=== PATIENT | female | born 1940 | race Two or more races ===

== ENCOUNTER 2024-04-30 13:38 | Inpatient (IN) | payer OTHER, MEDICAID ==
[~2024-04-30] VITALS: Ht 157.5 cm; Wt 107.5 kg
--- NOTE | 2024-04-30 14:08 | ED.PDOC ---
GI ASSESSMENT HPI Comments 83Y F with PMHx HTN, diverticulitis, , and hernia repair presents to ED for chief complaint LLQ abd pain x1day with diarrhea. Pt has chronic urinary incontinence. Pt denies constipation, nausea, vomiting, dysuria, urinary frequency, and urinary urgency. Pt states last diverticulitis episode was 2 years ago and she experienced similar symptoms. No other symptoms reported. Chief Complaint: Abdominal Pain Time Seen by MD: 13:55 Reviewed Notes: Nurses Notes, Medications, Allergies Allergies: Coded Allergies: Morphine (Verified Allergy, Unknown, 04/30/24) Information Source: Patient Mode of Arrival: Ambulatory Timing: Days Duration: Since onset Quality: Sharp Vomitus: None Stool: Watery Severity: Mild Recent: None Recent Hx of: None Pain Location: LLQ Modifying Factors: Nothing Associated sign and symptoms: Diarrhea, Abdominal Pain Past Medical History PAST MEDICAL HISTORY: HTN Surgical History: , Hernia Repair [employer] History: No Pertinent [employer] History Family History Family History: Unknown Social History Smoker: Non-Smoker Alcohol: Denies ETOH Use Drugs: Denies Drug Use Lives In: Home Constitutional: denies: chills, diaphoresis, fatigue, fever, malaise, sweats, weakness, others EENTM: denies: blurred vision, double vision, ear bleeding, ear discharge, ear drainage, ear pain, ear ringing, eye pain, eye redness, hearing loss, mouth pain, mouth swelling, nasal discharge, nose bleeding, nose congestion, nose pain, photophobia, tearing, throat pain, throat swelling, voice changes, others Respiratory: denies: cough, hemoptysis, orthopnea, SOB at rest, shortness of breath, SOB with excertion, stridor, wheezing, others Cardiovascular: denies: chest pain, dizzy spells, diaphoresis, Dyspnea on exertion, edema, irregular heart beat, left arm pain, lightheadedness, palpitations, PND, syncope, others Gastrointestinal: reports: abdominal pain, diarrhea; denies: abdomen distended, blood streaked bowels, constipated, dysphagia, difficulty swallowing, hematemesis, melena, nausea, poor appetite, poor fluid intake, rectal bleeding, rectal pain, vomiting, others Genitourinary: reports: incontinence; denies: abnormal vagina bleeding, burning, dyspareunia, dysuria, flank pain, frequency, hematuria, pain, , vagina discharge, urgency, others Neurological: denies: dizziness, fainting, headache, left sided numbness, left sided weakness, numbness, paresthesia, pre-existing deficit, right sided numbness, right sided weakness, seizure, speech problems, tingling, tremors, weakness, others Musculoskeletal: denies: back pain, gout, joint pain, joint swelling, muscle pain, muscle stiffness, neck pain, others Integumetry: denies: bruises, change in color, change in hair/nails, dryness, laceration, lesions, lumps, rash, wounds, others Allergic/Immunocompromised: denies: Difficulty Healing, Frequent Infections, Hives, Itching, others Hematologic/Lymphatic: denies: anemia, blood clots, easy bleeding, easy bruising, swollen glands, others Endocrine: denies: excessive hunger, excessive sweating, excessive thirst, excessive urination, flushing, intolerance to cold, intolerance to heat, unexplained weight gain, unexplained weight loss, others Psychiatric: denies: anxiety, bipolar disorder, depression, hopeless, panic disorder, schizophrenia, sleepless, suicidal, others All Other Systems: Reviewed and Negative Physical Exam General Appearance: No Apparent Distress, Normal HEENT: Normal ENT Inspection, Pharynx Normal, TMs Normal Neck: Full Range of Motion, Non-Tender, Normal, Normal Inspection Respiratory: Chest Non-Tender, Lungs Clear, No Accessory Muscle Use, No Respiratory Distress, Normal Breath Sounds Cardiovascular: No Edema, No JVD, No Murmur, No Gallop, Normal Peripheral Pulses, Regular Rate/Rhythm Breast Exam: Deferred Gastrointestinal: Diffuse, No Organomegaly, No Pulsatile Mass, Normal Bowel Sounds, Tenderness (mild) Genitalia: Deferred Pelvic: Deferred Rectal: Deferred Extremities: No calf tenderness, Normal capillary refill, Normal inspection, Normal range of motion, Non-tender, No pedal edema Musculoskeletal : Apperance: Normal Neurologic: Alert, rack loader II-XII nml as Tested, No Motor Deficits, Normal Affect, Normal Mood, No Sensory Deficits Cerebellar Function: Normal Reflexes: Normal Skin: Dry, Normal Color, Warm Lymphatic: No Adenopathy Was a procedure done? Was a procedure done?: No GI differential Dx Differential Diagnosis: Appendicitis, Aortic dissection, Bowel Obstruction, Cholangitis, Cholecystitis, Constipation, Diverticular disease, Gastritis/PUD, Gastroenteritis, GI hemorrhage, Hernia, Hepatitis, Inflammatory BD, Ischemic Bowel, Ovarian cyst/torsion, Pancreatitis, PID, Urinary Obstruction, UTI, Urolithiasis, Diabetes/ DKA, Electrolyte Imbalance, Food Poisoning, Bacterial, Parasitic, Viral, Hypovolemia, Impaction, Malnutrition, Ischemic Bowel, Mass, Kidney Stone X-Ray, Labs, Meds, VS Vital Signs Date Time Temp Pulse Resp B/P (MAP) Pulse Ox O2 Delivery O2 Flow Rate FiO2 04/30/24 15:44 69 19 152/80 (104) 95 04/30/24 15:43 69 19 152/80 04/30/24 15:02 65 20 97 Room Air* 0 21 04/30/24 14:52 65 18 157/62 04/30/24 14:48 98.2 65 18 157/62 (93) 92 98.2 04/30/24 13:48 99.9 72 18 182/71 (108) 94 Lab Test 04/30/24 14:43 04/30/24 13:52 Range/Units White Blood Count 11.0 H 4.4-10.8 10^3/uL Red Blood Count 5.30 H 4.0-5.20 10^6/uL Hemoglobin 15.0 12.2-16.2 g/dL Hematocrit 45.2 36.0-46.0 % Mean Corpuscular Volume 85.2 80.0-100.0 fL Mean Corpuscular Hemoglobin 28.2 28.0-32.0 pg Mean Corpuscular Hemoglobin Concent 33.1 32.0-36.0 g/dL Red Cell Distribution Width 14.7 H 11.8-14.3 % Platelet Count 174 140-450 10^3/uL Mean Platelet Volume 8.1 6.9-10.8 fL Neutrophils (%) (Auto) 58.8 37.0-80.0 % Lymphocytes (%) (Auto) 20.1 10.0-50.0 % Monocytes (%) (Auto) 12.0 0.0-12.0 % Eosinophils (%) (Auto) 8.5 H 0.0-7.0 % Basophils (%) (Auto) 0.6 0.0-2.0 % Neutrophils # (Auto) 6.4 1.6-8.6 10 ^3/uL Lymphocytes # (Auto) 2.2 0.4-5.4 10 ^3/uL Monocytes # (Auto) 1.3 0-1.3 10 ^3/uL Eosinophils # (Auto) 0.9 H 0-0.8 10 ^3/uL Basophils # (Auto) 0.1 0-0.2 10 ^3/uL Nucleated Red Blood Cells 0.0 % Sodium Level 138 136-145 mmol/L Potassium Level 4.0 3.5-5.1 mmol/L Chloride Level 107 98-107 mmol/L Carbon Dioxide Level 26 20-31 mmol/L Anion Gap 5 5-15 Blood Urea Nitrogen 10 9-23 mg/dL Creatinine 0.73 0.550-1.02 mg/dL Glomerular Filtration Rate Calc 81 >90 mL/min BUN/Creatinine Ratio Pending Serum Glucose 85 74-106 mg/dL Calcium Level 9.5 8.7-10.4 mg/dL Urine Color Light-yellow Yellow Urine Clarity Clear Clear Urine pH 7.0 5.0-9.0 Urine Specific [place] 1.009 1.001-1.035 Urine Protein Negative Negative Urine Ketones Negative Negative Urine Blood Negative Negative /uL Urine Nitrite Negative Negative Urine Bilirubin Negative Negative Urine Urobilinogen Normal Negative mg/dL Urine Leukocyte Esterase Negative Negative /uL Urine RBC 1 0 - 4 /hpf Urine WBC None seen 0 - 5 /hpf Urine Squamous Epithelial Cells Few <5 /hpf Urine Bacteria None seen None Seen /hpf Urine Glucose Normal Normal mg/dL Current Medications Medications (Trade) Dose Ordered Sig/Stacey Route Start Time Stop Time Status Last Admin Morphine Sulfate 2 mg ONCE ONCE IV 04/30/24 14:00 04/30/24 14:01 DC 04/30/24 14:52 Ondansetron HCl (Zofran) 4 mg ONCE ONCE IV 04/30/24 14:00 04/30/24 14:01 DC 04/30/24 14:50 Sodium Chloride 1,000 ml @ 100 mls/hr Q10H ONCE IV 04/30/24 14:00 04/30/24 23:59 04/30/24 14:[address] [address] Ph: [phone] DIAGNOSTIC IMAGING Diagnostic Imaging Report : [id number] Signed PATIENT: RUEL ROCHA ACCT: [id number] UNIT: [id number] : 1940 LOC: ER ROOM / BED: / AGE / SEX: 83 / F ADM STATUS: REG ER SERVICE 1354 ORDERING PHYSICIAN: BIANCA PLUMMER MD PROCEDURE(s): ABPL - CT AB PEL WO CON-NO ORAL OR IV REASON: llq pain, history of diverticulitis ORDER NUMBER(s): [id number], ACCESSION NUMBER(s): [id number] CT ABDOMEN AND PELVIS WITHOUT CONTRAST CLINICAL HISTORY: llq pain, history of diverticulitis TECHNIQUE: Multiple contiguous axial images of the abdomen and pelvis without intravenous contrast. The images were reformatted degenerate coronal and sagittal reconstructions. All CT scans at this medical facility are performed using dose modulation techniques as appropriate to a performed exam including the following:Automated exposure control was utilized; adjustment of the MA and/or KV according to patient size; and use of iterative reconstruction technique. Radiation Dose Information: CT Dose: CTDI volume is 25 mGy. Dose-length product is 1351 mGy*cm Comparison: None FINDINGS: Evaluation of the abdomen and pelvis is limited without intravenous contrast. The liver, gallbladder, pancreas, kidneys, adrenal glands, and spleen appear within normal limits. There is no gross evidence of abdominal lymphadenopathy. There is no free fluid or free air. There is a small hiatal hernia. The small and large bowel loops demonstrate normal caliber. There are multiple diverticula in the distal colon. There is irregular wall thickening with surrounding fat stranding in the sigmoid colon compatible with acute diverticulitis. There is no pericolonic fluid collection or free air. The abdominal aorta and IVC appear within normal limits. The bladder appears unremarkable for the degree of distention. Uterus grossly appears within normal limits.. There is no gross evidence of a pelvic mass. There is no free fluid collection. Lung bases are clear. There is no acute osseous abnormality. Levoconvex curvature of the lumbar spine with multilevel degenerative changes. IMPRESSION: 1. Acute sigmoid diverticulitis. There is no evidence pericolonic fluid collection or free air. 2. Small hiatal hernia. HS:Y ATED BY: DEWEY LANDIN MD DICTATED DATE/TIME: 04/30/24 1423 SIGNED BY: DEWEY LANDIN MD SIGNED DATE/TIME: 04/30/24 1423 CC: Time of 1ST Reevaluation: 14:25 Reevaluation 1ST: Unchanged Time of 2ND Reevaluation: 15:47 Reevaluation 2ND: Improved Patient Education/Counseling: Diagnosis, Treatment, Prognosis, Need For Follow Up Family Education/Counseling: No Family Present Additional Information I reviewed the following notes from patient's past medical encounters: None The following tests were ordered, and results were reviewed by me: CBC, BMP, UA, CT abd/pelvis WO contrast Additional Information was gathered from interviewing the following independent historians: None I reviewed and agreed with the following test results read by other providers: CT abd/pelvis WO contrast I discussed treatment and results with medical personnel. this is an elderly frail patient with a history of diverticulitis. she has recurrent divert iculitis. although there are no abscesses or perforations, she is a frail elderly bhutanese speaking only, without family here. compliance is a concern. she will be admitted for treatment Departure 1 Departure Time of Disposition: 15:49 Impression: Primary Impression: Diverticulitis of intestine Qualified Codes: K57.32 - Diverticulitis of large intestine without perforation or abscess without bleeding Disposition: ADMITTED INPATIENT Admit to: Med Surg Condition: Stable Discharged With: Self Critical Care Note Critical Care Time?: Yes (55 min-critical care time only) Critical care comment: Due to concerns for patients condition deteriorating, the care required my highest level of attention and readiness to intervene. I assessed the patient, reviewed the medical records, ordered the appropriate tests and treatments, then reassessed for results and responsiveness. I communicated with medical personnel and consultants and formulated a plan of care. Total critical care time excludes any procedures Stability Stability form required: No Heart Score Heart Score: Heart Score Response (Comments) Value History N/A 0 EKG N/A 0 Age N/A 0 Risk Factors N/A 0 Troponin N/A 0 Total 0 I personally scribed for BIANCA PLUMMER MD ([facility]) on 04/30/24 at 14:08. Electronically submitted by Latisha Keating ([facility]). I personally scribed for BIACNA PLUMMER MD ([facility]) on 04/30/24 at 15:13. Electronically submitted by Latisha Keating ([facility]). BIANCA PLUMMER MD Apr 30, 2024 14:08
[2024-04-30 14:22] LABS: Urine Bacteria None Seen /hpf (None Seen); Urine WBC None Seen /hpf (0 - 5)
--- NOTE | 2024-04-30 14:26 | DVH ---
CT ABDOMEN AND PELVIS WITHOUT CONTRAST CLINICAL HISTORY: llq pain, history of diverticulitis TECHNIQUE: Multiple contiguous axial images of the abdomen and pelvis without intravenous contrast. The images were reformatted degenerate coronal and sagittal reconstructions. All CT scans at this medical facility are performed using dose modulation techniques as appropriate t o a performed exam including the following:Automated exposure control was utilized; adjustment of the MA and/or KV according to patient size; and use of iterative reconstruction technique. Radiation Dose Information: CT Dose: CTDI volume is 25 mGy. Dose-length product is 1351 mGy*cm Comparison: None FINDINGS: Evaluation of the abdomen and pelvis is limited without intravenous contrast. The liver, gallbladder, pancreas, kidneys, adrenal glands, and spleen appear within normal limits. There is no gross evidence of abdominal lymphadenopathy. There is no free fluid or free air. There is a small hiatal hernia. The small and large bowel loops demonstrate normal caliber. There a re multiple diverticula in the distal colon. There is irregular wall thickening with surrounding fat stranding in the sigmoid colon compatible with acute diverticulitis. There is no pericolonic fluid co llection or free air. The abdominal aorta and IVC appear within normal limits. The bladder appears unremarkable for the degree of distention. Uterus grossly appears within normal l imits.. There is no gross evidence of a pelvic mass. There is no free fluid collection. Lung bases are clear. There is no acute osseous abnormality. Levoconvex curvature of the lumbar spine with multilevel degen erative changes. IMPRESSION: 1. Acute sigmoid diverticulitis. There is no evidence pericolonic fluid collection or free air. 2. Small hiatal hernia. HS:Y
[2024-04-30 14:45] LABS: Urine Blood Negative /uL (Negative); Urine Clarity Clear (Clear); Urine Protein, UAD Negative (Negative); Urine Specific Gravity 1.009 (1.001-1.035); Urine Squamous Epithelial Cell FEW /hpf (<5); Urine Urobilinogen Normal (Negative)
[2024-04-30 14:47] LABS: Urine Color Light-Yellow (Yellow)
[2024-04-30] MEDS: ONDANSETRON HCL 4 MG/2 ML VIAL IV ONE (14:50)
[2024-04-30] MEDS: SODIUM CHLORIDE 0.9% 1,000 ML IV ONE (14:52)
[2024-04-30] MEDS: MORPHINE SULFATE INJ 2 MG/ml SYRG IV ONE (14:52)
[2024-04-30 15:02] VITALS: PULSE 65; RESP 20; O2SAT 97
[2024-04-30 15:07] LABS: Basophils # (auto) 0.1 10 ^3/uL (0-0.2); Basophils % (auto) 0.6 % (0.0-2.0); Eosinophils # (auto) 0.9 10 ^3/uL (0-0.8); Eosinophils % (auto) 8.5 % (0.0-7.0); Hematocrit 45.2 % (36.0-46.0); Lymphocytes # (auto) 2.2 10 ^3/uL (0.4-5.4); Lymphocytes % (auto) 20.1 % (10.0-50.0); Mean Corpuscular Hemoglobin 28.2 pg (28.0-32.0); Mean Corpuscular Hgb Conc. 33.1 g/dL (32.0-36.0); Mean Corpuscular Volume 85.2 fL (80.0-100.0); Monocytes # (auto) 1.3 10 ^3/uL (0-1.3); Neutrophils # (auto) 6.4 10 ^3/uL (1.6-8.6); Neutrophils % (auto) 58.8 % (37.0-80.0); Platelet Count (auto) 174 10^3/uL (140-450); Red Cell Distribution Width 14.7 % (11.8-14.3)
[2024-04-30 15:13] LABS: Chloride 107 mmol/L (98-107); Sodium 138 mmol/L (136-145)
[2024-04-30 15:14] LABS: Anion Gap 5 (5-15); Carbon Dioxide 26 mmol/L (20-31)
[2024-04-30 15:15] LABS: Calcium 9.5 mg/dL (8.7-10.4)
[2024-04-30 15:20] LABS: Glucose 85 mg/dL (74-106)
[2024-04-30 15:52] LABS: BUN/Creatinine Ratio 13.7 (10.0-20.0); Blood Urea Nitrogen 10 mg/dL (9-23)
[2024-04-30] MEDS: cefTRIAXone 1GM/50ML D5W 50 ML IV ONE (16:29)
[2024-04-30] MEDS: metroNIDAZOLE 500MG/100ML 100 ML IV ONE (16:30)
--- NOTE | 2024-04-30 21:23 | DVHHPRES ---
History of Present Illness Resident Creating Document: POOJA VELASQUEZ RESIDENT History of Present Illness This is a 83-year-old female with past medical history of hypertension, diverticulitis presented to the ED with a chief complaint of left lower abdominal pain and few episodes of loose stool for 1 day prior to this admissio n. The patient states that abdominal pain started yesterday , which is constant, colicky in nature, 9/10 radiate to the lower abdomen without any aggravating or relieving factors and associated with few episodes of loose stool. The patient also complains of urgency and frequency and intermittent abdominal pain for last 1 year. The patient mentions last flare-up of diverticulitis was 2 years ago and that time she was admitted in the hospital and took IV antibiotics. She denies fever, chills, chest pain, shortness of breath, dizziness, diaphoresis, nausea, vomiting, dysuria, hematuria, hematochezia, sick contact. Past Medical History HTN, Diverticulitis Past Surgical History C- section, hernia repair Past Social History Lives alone and has a caregiver Nonsmoker,nonalcoholic and never tried any drugs Review of Systems Constitutional: No: Fever, Chills, Sweats, Weakness, Malaise, Other Eyes: No: Pain, Vision change, Conjunctivae inflammation, Eyelid inflammation, Other, Redness ENT: No: Ear pain, Ear discharge, Nose pain, Nose discharge, Nose congestion, Mouth pain, Mouth swelling, Throat pain, Throat swelling, Other Respiratory: No: Cough, Dry, Shortness of breath, SOB with excertion, Wheezing, Hemoptysis, Pleuritic Pain, Sputum, Wheezing, Other Cardiovascular: No: Chest Pain, Palpitations, Orthopnea, Paroxysmal Noc. Dyspnea, Edema, Lt Headedness, Other Gastrointestinal: Abdominal Pain, Diarrhea; No: Nausea, Vomiting, Constipation, Melena, Hematochezia, Other Genitourinary: No Dysuria; Frequency, Incontinence; No Hematuria, No Retention, No Other Musculoskeletal: No: other, neck pain, shoulder pain, arm pain, back pain, hand pain, leg pain, foot pain Skin: No: Rash, Lesions, Jaundice, Bruising, Other Neurological: No: Weakness, Numbness, Incoordination, Change in speech, Confusion, Seizures, Other Allergies: Coded Allergies: Morphine (Verified Allergy, Unknown, 04/30/24) Exam Vital Signs Vital Signs Date Time Temp Pulse Resp B/P (MAP) Pulse Ox O2 Delivery O2 Flow Rate FiO2 04/30/24 19:35 98.4 74 144/65 (91) 93 98.4 04/30/24 15:44 19 04/30/24 15:02 Room Air* 0 21 Exam Physical examination: General Appearance: Alert, Oriented X3, Cooperative, mild distress HEENT: Atraumatic, PERRLA, EOMI, Mucous membrane moist/pink Respiratory: Clear to auscultation, Normal air movement Cardiovascular: Regular rate, Normal S1, Normal S2, No murmurs, no chest wall tenderness Abdominal: Normal bowel sounds, Soft, mild tenderness in the lt lower abdomen, No hepatospenomegaly, No masses Extremities: No clubbing, No cyanosis, No edema, Normal pulses, No tenderness/swelling Skin: No rashes, No breakdown, No significant lesion Neuro: Use walker, Normal speech, Strength at 5/5 X4 ext, Normal tone, Sensation intact, grossly intact cranial nerves. Psych/Mental Status: Mental status NL, Mood NL Labs/Xrays Labs Test 04/30/24 14:43 04/30/24 13:52 Range/Units White Blood Count 11.0 H 4.4-10.8 10^3/uL Red Blood Count 5.30 H 4.0-5.20 10^6/uL Hemoglobin 15.0 12.2-16.2 g/dL Hematocrit 45.2 36.0-46.0 % Mean Corpuscular Volume 85.2 80.0-100.0 fL Mean Corpuscular Hemoglobin 28.2 28.0-32.0 pg Mean Corpuscular Hemoglobin Concent 33.1 32.0-36.0 g/dL Red Cell Distribution Width 14.7 H 11.8-14.3 % Platelet Count 174 140-450 10^3/uL Mean Platelet Volume 8.1 6.9-10.8 fL Neutrophils (%) (Auto) 58.8 37.0-80.0 % Lymphocytes (%) (Auto) 20.1 10.0-50.0 % Monocytes (%) (Auto) 12.0 0.0-12.0 % Eosinophils (%) (Auto) 8.5 H 0.0-7.0 % Basophils (%) (Auto) 0.6 0.0-2.0 % Neutrophils # (Auto) 6.4 1.6-8.6 10 ^3/uL Lymphocytes # (Auto) 2.2 0.4-5.4 10 ^3/uL Monocytes # (Auto) 1.3 0-1.3 10 ^3/uL Eosinophils # (Auto) 0.9 H 0-0.8 10 ^3/uL Basophils # (Auto) 0.1 0-0.2 10 ^3/uL Nucleated Red Blood Cells 0.0 % Sodium Level 138 136-145 mmol/L Potassium Level 4.0 3.5-5.1 mmol/L Chloride Level 107 98-107 mmol/L Carbon Dioxide Level 26 20-31 mmol/L Anion Gap 5 5-15 Blood Urea Nitrogen 10 9-23 mg/dL Creatinine 0.73 0.550-1.02 mg/dL Glomerular Filtration Rate Calc 81 >90 mL/min BUN/Creatinine Ratio 13.7 10.0-20.0 Serum Glucose 85 74-106 mg/dL Calcium Level 9.5 8.7-10.4 mg/dL Urine Color Light-yellow Yellow Urine Clarity Clear Clear Urine pH 7.0 5.0-9.0 Urine Specific [place] 1.009 1.001-1.035 Urine Protein Negative Negative Urine Ketones Negative Negative Urine Blood Negative Negative /uL Urine Nitrite Negative Negative Urine Bilirubin Negative Negative Urine Urobilinogen Normal Negative mg/dL Urine Leukocyte Esterase Negative Negative /uL Urine RBC 1 0 - 4 /hpf Urine WBC None seen 0 - 5 /hpf Urine Squamous Epithelial Cells Few <5 /hpf Urine Bacteria None seen None Seen /hpf Urine Glucose Normal Normal mg/dL Assessment/Plan Assessment/Plan Assessment and plan: # Intractable abdominal pain likely secondary to acute sigmoid diverticulitis - CT abdomen pelvis revealed acute sigmoid diverticulitis and there is no evidence pericolonic fluid collection or free air. - Clear liquid diet - IV normal saline at 100ml/hr - IV morphine 2mg Q6 p.r.n. - IV ondansetron 4 mg Q 8 p.r.n. - IV ceftriaxone 2 g daily and IV metronidazole 500 mg t.i.d. # Prediabetes, hemoglobin A1c 6 % # Morbid obesity ( BMI 41.3 kg/m2) - Counseled patient regarding low carb diet, lifestyle modification and physical exercise # Hypertensive heart disease - Lisinopril 20 mg p.o. daily and amlodipine 5 mg daily # PUD prophylaxis - Pepcid 20 mg p.o. daily # DVT prophylaxis - Lovenox 40 mg sc daily Goal of care discussed with the patient for more than 17 minutes full code Plan discussed with Dr. Murillo Plan discussed with: Patient, Other My Orders Orders - POOJA VELASQUEZ Procedure Category Date Status Time Admit ADMIT 04/30/24 Transmitted 21:21 Date of Service: Apr 30, 2024 Billing Provider: VICKIE MURILLO MD Common Visit Codes: 35252-HVVMGRT INP/OBS CARE (HIGH) Secondary Visit Codes: [id number] CARE PLAN 30 MINUTES POOJA VELASQUEZ Apr 30, 2024 21:23 VICKIE MURILLO MD May 01, 2024 20:51
[2024-04-30] MEDS ORDERED: ONDANSETRON HCL 4 MG/2 ML VIAL IV PRN (21:45)
[2024-04-30] MEDS ORDERED: MORPHINE SULFATE INJ 2 MG/ml SYRG IV PRN (21:45)
[2024-04-30] MEDS: SODIUM CHLORIDE 0.9% 1,000 ML IV SCH (21:45)
[2024-04-30 22:22] LABS: INR 1.04 (0.9-1.15); Partial Thromboplastin Time 28.5 SEC (24.5-34.5)
[2024-04-30] MEDS: metroNIDAZOLE 500MG/100ML 100 ML IV SCH (22:27)
[2024-04-30 23:18] VITALS: BP 149/64; PULSE 70; RESP 19; TEMP 97.7; O2SAT 93
[2024-04-30 23:30] VITALS: BP 149/64; PULSE 70; RESP 19; TEMP 97.7; O2SAT 93
[2024-05-01] VITALS (8 sets, daily range): BP systolic 128–155; BP diastolic 53–85; PULSE 59–65; RESP 15–19; TEMP 97.5–98; O2SAT 17–96
--- NOTE | 2024-05-01 06:03 | DVH ---
CHEST RADIOGRAPH Indication: Chest pain Technique: Single frontal view of the chest was obtained Comparison: None FINDINGS: Lines and Tubes: None Lungs: No focal consolidation. Pleura: No effusion. No pneumothorax. Cardiomediastinal contours: Cardiomegaly. Bones: No acute osseous abnormality. IMPRESSION: 1. Cardiomegaly. 2. No focal airspace disease.
[2024-05-01 09:31] LABS: Amphetamine Screen, Urine Neg (NEGATIVE); Barbiturate Scree,Urine Neg (NEGATIVE); Benzodiazephine Screen, Urine Neg (NEGATIVE); Cocaine Screen, Urine Neg (NEGATIVE); Opiate Scree,Urine Neg (NEGATIVE); Phencyclidine Screen, Urine Neg (NEGATIVE)
[2024-05-01 09:32] LABS: Cannabinoid Screen, Urine Neg (NEGATIVE)
[2024-05-01] MEDS ORDERED: amLODIPine BESYLATE 5 MG TAB PO SCH (10:00)
[2024-05-01] MEDS: amLODIPine BESYLATE 5 MG TAB PO SCH (10:00)
[2024-05-01] MEDS: LISINOPRIL 20 MG TAB PO SCH (10:09)
[2024-05-01] MEDS: FAMOTIDINE 20 MG TAB PO SCH (10:10)
[2024-05-01] MEDS: ENOXAPARIN SOD 40 MG/0.4 ML SYRINGE SC SCH (10:11)
[2024-05-01 10:36] LABS: Basophils # (auto) 0 10 ^3/uL (0-0.2); Basophils % (auto) 0.5 % (0.0-2.0); Eosinophils # (auto) 0.7 10 ^3/uL (0-0.8); Eosinophils % (auto) 9.6 % (0.0-7.0); Hematocrit 41.7 % (36.0-46.0); Hemoglobin 13.8 g/dL (12.2-16.2); Lymphocytes # (auto) 1.5 10 ^3/uL (0.4-5.4); Lymphocytes % (auto) 20.5 % (10.0-50.0); Mean Corpuscular Hemoglobin 28.1 pg (28.0-32.0); Mean Corpuscular Hgb Conc. 33.1 g/dL (32.0-36.0); Mean Corpuscular Volume 84.8 fL (80.0-100.0); Monocytes # (auto) 0.8 10 ^3/uL (0-1.3); Neutrophils # (auto) 4.5 10 ^3/uL (1.6-8.6); Neutrophils % (auto) 59.4 % (37.0-80.0); Platelet Count (auto) 159 10^3/uL (140-450); Red Blood Cells 4.92 10^6/uL (4.0-5.20); Red Cell Distribution Width 14.8 % (11.8-14.3); White Blood Cell 7.5 10^3/uL (4.4-10.8)
--- NOTE | 2024-05-01 13:18 | DVHPN2 ---
Reviewed: Care Plan, H&P, Labs, Medications, Previous Orders, Radiology Changes from previous H/P or p: No Changes Eyes: No Pain, No Vision change, No Conjunctivae inflammation, No Eyelid inflammation, No Other, No Redness ENT: No Ear pain, No Ear discharge, No Nose pain, No Nose discharge, No Nose congestion, No Mouth pain, No Mouth swelling, No Throat pain, No Throat swelling, No Other Cardiovascular: No Chest Pain, No Palpitations, No Orthopnea, No Paroxysmal Noc. Dyspnea, No Edema, No Lt Headedness, No Other Respiratory: No Cough, No Dry, No Shortness of breath, No SOB with excertion, No Wheezing, No Hemoptysis, No Pleuritic Pain, No Sputum, No Other Gastrointestinal: No Nausea, No Vomiting; Abdominal Pain, Diarrhea; No Constipation, No Melena, No Hematochezia, No Other Genitourinary: No Dysuria; Frequency, Incontinence; No Hematuria, No Retention, No Other Musculoskeletal: No other, No neck pain, No shoulder pain, No arm pain, No back pain, No hand pain, No leg pain, No foot pain Skin: No Rash, No Lesions, No Jaundice, No Bruising, No Other Objective Vitals Vital Signs Date Time Temp Pulse Resp B/P (MAP) Pulse Ox O2 Delivery O2 Flow Rate FiO2 05/01/24 13:00 98.0 59 17 134/66 (88) 17 98.0 04/30/24 23:18 Room Air* 0 21 Intake/Output Intake and Output 05/01/24 07:00 Intake Total 250 ml Balance 250 ml Intake IV Total 250 ml # Voids 2 Medications Current Medications Medications Dose Ordered Sig/Stacey Route Start Time Stop Time Status Last Admin Dose Admin Sodium Chloride 1,000 ml @ 75 mls/hr [id number] IV 04/30/24 21:45 04/30/24 21:45 75 MLS/HR Ceftriaxone Sodium/Dextrose 50 ml @ 50 mls/hr Q24H IV 05/01/24 21:00 Metronidazole 100 ml @ 100 mls/hr TID IV 04/30/24 22:00 05/01/24 05:14 100 MLS/HR Ondansetron HCl 4 mg Q8HPRN PRN IV 04/30/24 21:45 Morphine Sulfate 2 mg Q6HPRN PRN IV 04/30/24 21:45 Lisinopril 20 mg DAILY PO 05/01/24 10:00 05/01/24 10:09 20 MG Famotidine 20 mg DAILY PO 05/01/24 10:00 05/01/24 10:10 20 MG Enoxaparin Sodium 40 mg DAILY SC 05/01/24 10:00 05/01/24 10:11 40 MG Amlodipine Besylate 10 mg DAILY PO 05/01/24 08:45 05/01/24 10:10 10 MG Laboratory Results Laboratory Tests 04/30/24 14:43 05/01/24 09:15 Chemistry Test 04/30/24 14:43 Calcium Level 9.5 mg/dL (8.7-10.4) Coagulation Test 04/30/24 21:50 Prothrombin Time 11.0 sec (9.3-11.8) Prothrombin Time INR 1.04 (0.9-1.15) Activated Partial Thromboplast Time 28.5 SEC (24.5-34.5) Cardiac Markers Test 04/30/24 21:50 B-Type Natriuretic Peptide 135.68 pg/mL (0-100) HgA1c, TSH Test 04/30/24 21:50 Hemoglobin A1c 6.0 % A1C (<5.7) H Thyroid Stimulating Hormone (TSH) 1.06 uIU/mL (0.55-4.78) Urinalysis Test 04/30/24 13:52 Urine Color Light-yellow (Yellow) Urine Clarity Clear (Clear) Urine pH 7.0 (5.0-9.0) Urine Specific [place] 1.009 (1.001-1.035) Urine Protein Negative (Negative) Urine Ketones Negative (Negative) Urine Blood Negative /uL (Negative) Urine Nitrite Negative (Negative) Urine Bilirubin Negative (Negative) Urine Urobilinogen Normal mg/dL (Negative) Urine Leukocyte Esterase Negative /uL (Negative) Urine RBC 1 /hpf (0 - 4) Urine WBC None seen /hpf (0 - 5) Urine Squamous Epithelial Cells Few /hpf (<5) Urine Bacteria None seen /hpf (None Seen) Urine Glucose Normal mg/dL (Normal) Labs and/or images reviewed: Labs reviewed by me, Image(s) reviewed by me Assessment/Plan Assessment/Plan Sepsis secondary to acute diverticulitis: Blood cultures Acute diverticulitis: Rocephin Flagyl History of recurrent diverticulitis Uncontrolled hypertension Acute dehydration: IV fluids Time spent 55 minutes Patient is full code Advanced care planning time 20 minutes Plan discussed with: Patient Date of Service: May 01, 2024 Billing Provider: JESSE GUPTA MD Common Visit Codes: [id number] INP/OBS CARE(HIGH) Secondary Visit Codes: [id number] CARE PLAN 30 MINUTES JESSE GUPTA MD May 01, 2024 13:18
[2024-05-01] MEDS: cefTRIAXone 2GM/50ML D5W 50 ML IV SCH (20:16)
--- NOTE | 2024-05-01 21:38 | DVHSR ---
APPROVED REPORT EXAM: Two-dimensional and M-mode echocardiogram with Doppler and color Doppler. Blood Pressure: 145/53 mmHg INDICATION cardiac delination RISK FACTORS Height: 62, Weight: 226 DIMENSIONS LVDd (3.8-5.7cm)LA (2D)4.9 (1.9-4.0cm)Aortic Root (2.0-3.7cm) EF (%) 65.0 (55-70%)Rt. Atrium4.4 (1.9-4.0cm)Asc. Aorta cm Mitral Valve MitralMitral Stenosis E wave0.89m/sMV Mean GR.mmHg A wave1.04m/sMV Peak GR.122mmHg E/A ratio0.92D MVAcm2 DECEL [id number] 1/2 Timems Aortic Valve Aortic ValveAortic Stenosis V10.99m/Damon Mean GR.8mmHg V22.07m/Damon Peak GR.18mmHg AI P 1/2 Pari475.48ms Tricuspid Valve TR Velocity2.38m/s [id number] Other Information Technically limited study due to body habitus. Conclusion MODERATE DEGREE AORTIC REGURGITATION CALCIFIED AORTIC VALVE BUT GRADIENT NOT OBTAINED IT IS SEVERE AORTIC STENOSIS NORMAL LV EJECTION FRACTION OF 65% NORMAL MV,TV AND PV NORMAL RV FUNCTION NO EFFUSION NORMAL RVSP
[2024-05-02] VITALS (8 sets, daily range): BP systolic 134–160; BP diastolic 53–121; PULSE 57–69; RESP 16–20; TEMP 97.5–98; O2SAT 92–95
[2024-05-02] MEDS: HYDROcodone-ACET 5/325MG TAB PO PRN (03:39)
[2024-05-02] MEDS ORDERED: ROPIVACAINE HCL 200 ML ONE (06:06)
--- NOTE | 2024-05-02 08:05 | DVHPN2 ---
Reviewed: Care Plan, H&P, Labs, Medications, Previous Orders, Radiology Changes from previous H/P or p: No Changes Eyes: No Pain, No Vision change, No Conjunctivae inflammation, No Eyelid inflammation, No Other, No Redness ENT: No Ear pain, No Ear discharge, No Nose pain, No Nose discharge, No Nose congestion, No Mouth pain, No Mouth swelling, No Throat pain, No Throat swelling, No Other Cardiovascular: No Chest Pain, No Palpitations, No Orthopnea, No Paroxysmal Noc. Dyspnea, No Edema, No Lt Headedness, No Other Respiratory: No Cough, No Dry, No Shortness of breath, No SOB with excertion, No Wheezing, No Hemoptysis, No Pleuritic Pain, No Sputum, No Other Gastrointestinal: No Nausea, No Vomiting; Abdominal Pain, Diarrhea; No Constipation, No Melena, No Hematochezia, No Other Genitourinary: No Dysuria; Frequency, Incontinence; No Hematuria, No Retention, No Other Musculoskeletal: No other, No neck pain, No shoulder pain, No arm pain, No back pain, No hand pain, No leg pain, No foot pain Skin: No Rash, No Lesions, No Jaundice, No Bruising, No Other Objective Vitals Vital Signs Date Time Temp Pulse Resp B/P (MAP) Pulse Ox O2 Delivery O2 Flow Rate FiO2 05/02/24 05:00 97.7 69 17 142/121 (128) 93 97.7 05/01/24 20:00 Room Air* 0 21 Intake/Output Intake and Output 05/02/24 07:00 Intake Total 2570 ml Balance 2570 ml Intake Oral 1870 ml IV Total 700 ml # Voids 12 # Bowel Movements 2 Medications Current Medications Medications Dose Ordered Sig/Stacey Route Start Time Stop Time Status Last Admin Dose Admin Sodium Chloride 1,000 ml @ 75 mls/hr [id number] IV 04/30/24 21:45 04/30/24 21:45 75 MLS/HR Ceftriaxone Sodium/Dextrose 50 ml @ 50 mls/hr Q24H IV 05/01/24 21:00 05/01/24 20:16 50 MLS/HR Metronidazole 100 ml @ 100 mls/hr TID IV 04/30/24 22:00 05/02/24 05:31 100 MLS/HR Ondansetron HCl 4 mg Q8HPRN PRN IV 04/30/24 21:45 Lisinopril 20 mg DAILY PO 05/01/24 10:00 05/01/24 10:09 20 MG Famotidine 20 mg DAILY PO 05/01/24 10:00 05/01/24 10:10 20 MG Enoxaparin Sodium 40 mg DAILY SC 05/01/24 10:00 05/01/24 10:11 40 MG Amlodipine Besylate 10 mg DAILY PO 05/01/24 08:45 05/01/24 10:10 10 MG Acetaminophen/ Hydrocodone Bitart 1 tab Q6HPRN PRN PO 05/01/24 14:00 05/02/24 03:39 1 TAB Laboratory Results Laboratory Tests 04/30/24 14:43 05/01/24 09:15 Urinalysis Test 04/30/24 13:52 Urine Color Light-yellow (Yellow) Urine Clarity Clear (Clear) Urine pH 7.0 (5.0-9.0) Urine Specific [place] 1.009 (1.001-1.035) Urine Protein Negative (Negative) Urine Ketones Negative (Negative) Urine Blood Negative /uL (Negative) Urine Nitrite Negative (Negative) Urine Bilirubin Negative (Negative) Urine Urobilinogen Normal mg/dL (Negative) Urine Leukocyte Esterase Negative /uL (Negative) Urine RBC 1 /hpf (0 - 4) Urine WBC None seen /hpf (0 - 5) Urine Squamous Epithelial Cells Few /hpf (<5) Urine Bacteria None seen /hpf (None Seen) Urine Glucose Normal mg/dL (Normal) Labs and/or images reviewed: Labs reviewed by me, Image(s) reviewed by me Assessment/Plan Assessment/Plan Sepsis secondary to acute diverticulitis: Blood cultures Acute diverticulitis: Rocephin Flagyl History of recurrent diverticulitis Uncontrolled hypertension Acute dehydration: IV fluids Time spent 55 minutes Patient is full code Advanced care planning time 20 minutes Plan discussed with: Patient My Orders Orders - JESSE GUPTA MD Procedure Category Date Status Time Hydrocodone-Acet PHA 05/01/24 In Process 5/325mg Tab ([place] 14:00 Date of Service: May 02, 2024 Billing Provider: JESSE GUPTA MD Common Visit Codes: [id number] INP/OBS CARE(HIGH) JESSE GUPTA MD May 02, 2024 08:05
[2024-05-03] VITALS (7 sets, daily range): BP systolic 132–161; BP diastolic 71–80; PULSE 65–86; RESP 16–20; TEMP 97.9–98.7; O2SAT 92–98
--- NOTE | 2024-05-03 08:32 | DVHPN2 ---
Reviewed: Care Plan, H&P, Labs, Medications, Previous Orders, Radiology Changes from previous H/P or p: No Changes Eyes: No Pain, No Vision change, No Conjunctivae inflammation, No Eyelid inflammation, No Other, No Redness ENT: No Ear pain, No Ear discharge, No Nose pain, No Nose discharge, No Nose congestion, No Mouth pain, No Mouth swelling, No Throat pain, No Throat swelling, No Other Cardiovascular: No Chest Pain, No Palpitations, No Orthopnea, No Paroxysmal Noc. Dyspnea, No Edema, No Lt Headedness, No Other Respiratory: No Cough, No Dry, No Shortness of breath, No SOB with excertion, No Wheezing, No Hemoptysis, No Pleuritic Pain, No Sputum, No Other Gastrointestinal: No Nausea, No Vomiting; Abdominal Pain, Diarrhea; No Constipation, No Melena, No Hematochezia, No Other Genitourinary: No Dysuria; Frequency, Incontinence; No Hematuria, No Retention, No Other Musculoskeletal: No other, No neck pain, No shoulder pain, No arm pain, No back pain, No hand pain, No leg pain, No foot pain Skin: No Rash, No Lesions, No Jaundice, No Bruising, No Other Objective Vitals Vital Signs Date Time Temp Pulse Resp B/P (MAP) Pulse Ox O2 Delivery O2 Flow Rate FiO2 05/03/24 05:00 98.7 65 20 153/71 (98) 93 98.7 05/02/24 20:00 Room Air* 0 21 Intake/Output Intake and Output 05/03/24 07:00 Intake Total 850 ml Output Total 250 ml Balance 600 ml Intake Oral 500 ml IV Total 350 ml Output Urine Total 250 ml # Voids 8 Medications Current Medications Medications Dose Ordered Sig/Stacey Route Start Time Stop Time Status Last Admin Dose Admin Sodium Chloride 1,000 ml @ 75 mls/hr [id number] IV 04/30/24 21:45 04/30/24 21:45 75 MLS/HR Ceftriaxone Sodium/Dextrose 50 ml @ 50 mls/hr Q24H IV 05/01/24 21:00 05/02/24 21:32 50 MLS/HR Metronidazole 100 ml @ 100 mls/hr TID IV 04/30/24 22:00 05/03/24 05:08 100 MLS/HR Ondansetron HCl 4 mg Q8HPRN PRN IV 04/30/24 21:45 Lisinopril 20 mg DAILY PO 05/01/24 10:00 05/02/24 11:11 20 MG Famotidine 20 mg DAILY PO 05/01/24 10:00 05/02/24 11:12 20 MG Enoxaparin Sodium 40 mg DAILY SC 05/01/24 10:00 05/02/24 11:12 40 MG Amlodipine Besylate 10 mg DAILY PO 05/01/24 08:45 05/02/24 11:12 10 MG Acetaminophen/ Hydrocodone Bitart 1 tab Q6HPRN PRN PO 05/01/24 14:00 05/02/24 23:48 1 TAB Laboratory Results Laboratory Tests 04/30/24 14:43 05/01/24 09:15 Urinalysis Test 04/30/24 13:52 Urine Color Light-yellow (Yellow) Urine Clarity Clear (Clear) Urine pH 7.0 (5.0-9.0) Urine Specific [place] 1.009 (1.001-1.035) Urine Protein Negative (Negative) Urine Ketones Negative (Negative) Urine Blood Negative /uL (Negative) Urine Nitrite Negative (Negative) Urine Bilirubin Negative (Negative) Urine Urobilinogen Normal mg/dL (Negative) Urine Leukocyte Esterase Negative /uL (Negative) Urine RBC 1 /hpf (0 - 4) Urine WBC None seen /hpf (0 - 5) Urine Squamous Epithelial Cells Few /hpf (<5) Urine Bacteria None seen /hpf (None Seen) Urine Glucose Normal mg/dL (Normal) Labs and/or images reviewed: Labs reviewed by me, Image(s) reviewed by me Assessment/Plan Assessment/Plan Sepsis secondary to acute diverticulitis: Acute diverticulitis: Rocephin Flagyl History of recurrent diverticulitis Uncontrolled hypertension Acute dehydration: IV fluids Time spent 45 minutes Patient is full code Plan discussed with: Patient Date of Service: May 03, 2024 Billing Provider: JESSE GUPTA MD Common Visit Codes: [id number] INP/OBS CARE(HIGH) JESSE GUPTA MD May 03, 2024 08:32
--- NOTE | 2024-05-03 08:39 | DVHDS2 ---
Discharge Summary Date of Admission Apr 30, 2024 at 21:21 Date of Discharge: May 03, 2024 Admitting Diagnosis Left lower quadrant abdominal pain Wounds: None Labs/Diagnostic Data: Laboratory Results Test 05/01/24 09:15 04/30/24 21:50 04/30/24 14:43 04/30/24 13:52 White Blood Count 7.5 10^3/uL (4.4-10.8) Red Blood Count 4.92 10^6/uL (4.0-5.20) Hemoglobin 13.8 g/dL (12.2-16.2) Hematocrit 41.7 % (36.0-46.0) Mean Corpuscular Volume 84.8 fL (80.0-100.0) Mean Corpuscular Hemoglobin 28.1 pg (28.0-32.0) Mean Corpuscular Hemoglobin Concent 33.1 g/dL (32.0-36.0) Red Cell Distribution Width 14.8 % (11.8-14.3) Platelet Count 159 10^3/uL (140-450) Mean Platelet Volume 8.3 fL (6.9-10.8) Neutrophils (%) (Auto) 59.4 % (37.0-80.0) Lymphocytes (%) (Auto) 20.5 % (10.0-50.0) Monocytes (%) (Auto) 10.0 % (0.0-12.0) Eosinophils (%) (Auto) 9.6 % (0.0-7.0) Basophils (%) (Auto) 0.5 % (0.0-2.0) Neutrophils # (Auto) 4.5 10 ^3/uL (1.6-8.6) Lymphocytes # (Auto) 1.5 10 ^3/uL (0.4-5.4) Monocytes # (Auto) 0.8 10 ^3/uL (0-1.3) Eosinophils # (Auto) 0.7 10 ^3/uL (0-0.8) Basophils # (Auto) 0 10 ^3/uL (0-0.2) Nucleated Red Blood Cells 0.0 % Prothrombin Time 11.0 sec (9.3-11.8) Prothrombin Time INR 1.04 (0.9-1.15) Activated Partial Thromboplast Time 28.5 SEC (24.5-34.5) Hemoglobin A1c 6.0 % A1C (<5.7) B-Type Natriuretic Peptide 135.68 pg/mL (0-100) Thyroid Stimulating Hormone (TSH) 1.06 uIU/mL (0.55-4.78) Sodium Level 138 mmol/L (136-145) Potassium Level 4.0 mmol/L (3.5-5.1) Chloride Level 107 mmol/L (98-107) Carbon Dioxide Level 26 mmol/L (20-31) Anion Gap 5 (5-15) Blood Urea Nitrogen 10 mg/dL (9-23) Creatinine 0.73 mg/dL (0.550-1.02) Glomerular Filtration Rate Calc 81 mL/min (>90) BUN/Creatinine Ratio 13.7 (10.0-20.0) Serum Glucose 85 mg/dL (74-106) Calcium Level 9.5 mg/dL (8.7-10.4) Urine Color Light-yellow (Yellow) Urine Clarity Clear (Clear) Urine pH 7.0 (5.0-9.0) Urine Specific [place] 1.009 (1.001-1.035) Urine Protein Negative (Negative) Urine Ketones Negative (Negative) Urine Blood Negative /uL (Negative) Urine Nitrite Negative (Negative) Urine Bilirubin Negative (Negative) Urine Urobilinogen Normal mg/dL (Negative) Urine Leukocyte Esterase Negative /uL (Negative) Urine RBC 1 /hpf (0 - 4) Urine WBC None seen /hpf (0 - 5) Urine Squamous Epithelial Cells Few /hpf (<5) Urine Bacteria None seen /hpf (None Seen) Urine Glucose Normal mg/dL (Normal) Urine Opiates Screen Neg (NEGATIVE) Urine Fentanyl Screen Neg (NEGATIVE) Urine Barbiturates Screen Neg (NEGATIVE) Urine Phencyclidine Screen Neg (NEGATIVE) Urine Amphetamines Screen Neg (NEGATIVE) Urine Benzodiazepines Screen Neg (NEGATIVE) Urine Cocaine Screen Neg (NEGATIVE) Urine Cannabinoids Screen Neg (NEGATIVE) Other Laboratory Tests 05/01/24 09:15 04/30/24 14:43 Brief Hx & Hospital Course: 83-year-old female with a history of hypertension recurrent diverticulitis came in for left lower quadrant abdominal pain. White count was elevated [address] abdomen pelvis showed acute diverticulitis without perforation. Treated with Rocephin and Flagyl. Uncontrolled hypertension controlled with the medications. Patient is tolerating soft diet will be discharged to nursing home facility for two weeks of Rocephin 1 g IV daily and Flagyl 500 mg IV q.8 hours. Plan discussed with the patient and her daughter Alix. Consults/Reason for consult None Operations or Procedures CT abdomen pelvis without contrast Condition at Discharge: Fair Final Diagnosis/Problems List Sepsis secondary to acute diverticulitis: Acute diverticulitis: Rocephin Flagyl History of recurrent diverticulitis Uncontrolled hypertension Acute dehydration: IV fluids Time spent 45 minutes Discharge Disposition: Nursing Home Facility Discharge Instruct/Medications Diet: Cardiac 2g Na,low cholest Activity: Light activity Follow Up/Referral: [facility] Medications: Rocephin 1 g IV daily for two weeks Flagyl 500 mg IV q.8 hours for two weeks 39 (Time taken for discharge summary 39 minutes) Discharge Statement: "Patient was advised to return to the ER or call 911 if any headaches, dizziness, shortness of breath, chest pain, abdominal pain, bleeding, fevers, or worsening of medical condition. Patient was counseled about treatment plan, medications, possible side effects, patientverbalized understanding. All questions were answered to the best of my ability. This discharge took greater then 30 minutes in planning, reviewing documentation, counseling the patient, and discussing with other team members." ASSESSMENT ASSESSMENT Hospital Course Improved Assessment Sepsis secondary to acute diverticulitis: Acute diverticulitis: Rocephin Flagyl History of recurrent diverticulitis Uncontrolled hypertension Acute dehydration: IV fluids Time spent 45 minutes Date of Service: May 03, 2024 Billing Provider: JESSE GUPTA MD Common Visit Codes: [id number] DISCH DAY >30min JESSE GUPTA MD May 03, 2024 08:39
[2024-05-03 10:47] LABS: Basophils # (auto) 0 10 ^3/uL (0-0.2); Basophils % (auto) 0.6 % (0.0-2.0); Eosinophils % (auto) 13.6 % (0.0-7.0); Hematocrit 43.7 % (36.0-46.0); Hemoglobin 14.5 g/dL (12.2-16.2); Lymphocytes # (auto) 1.9 10 ^3/uL (0.4-5.4); Lymphocytes % (auto) 24.1 % (10.0-50.0); Mean Corpuscular Hemoglobin 28.5 pg (28.0-32.0); Mean Corpuscular Hgb Conc. 33.2 g/dL (32.0-36.0); Mean Corpuscular Volume 85.8 fL (80.0-100.0); Monocytes # (auto) 0.8 10 ^3/uL (0-1.3); Monocytes % (auto) 10.5 % (0.0-12.0); Neutrophils # (auto) 3.9 10 ^3/uL (1.6-8.6); Neutrophils % (auto) 51.2 % (37.0-80.0); Nucleated Red Blood Cells % 0.1 %; Platelet Count (auto) 168 10^3/uL (140-450); Red Blood Cells 5.09 10^6/uL (4.0-5.20); Red Cell Distribution Width 14.2 % (11.8-14.3); White Blood Cell 7.7 10^3/uL (4.4-10.8)
[2024-05-03 11:09] LABS: Alanine Aminotransferase 12 U/L (7-40); Alkaline Phosphatase 70 U/L (46-116); Anion Gap 9 (5-15); Aspartate Aminotransferase 15 U/L (13-40); BUN/Creatinine Ratio 9.6 (10.0-20.0); Calcium 9.7 mg/dL (8.7-10.4); Carbon Dioxide 25 mmol/L (20-31); Chloride 106 mmol/L (98-107); Sodium 140 mmol/L (136-145)
[2024-05-03 11:10] LABS: Bilirubin, Total 0.3 mg/dL (0.2-1.0); Total Protein 6.3 g/dL (5.7-8.2)
[2024-05-03 11:11] LABS: Blood Urea Nitrogen 8 mg/dL (9-23); Glucose 136 mg/dL (74-106)
[2024-05-04 01:00] VITALS: BP 141/69; PULSE 68; RESP 19; TEMP 98.3; O2SAT 94
[2024-05-04 01:57] LABS: Urine Bacteria None Seen /hpf (None Seen)
[2024-05-04 02:18] LABS: Urine Blood Negative /uL (Negative); Urine Clarity Clear (Clear); Urine Color Light-Yellow (Yellow); Urine Protein, UAD Negative (Negative); Urine Squamous Epithelial Cell None Seen /hpf (<5); Urine Urobilinogen Normal (Negative); Urine WBC <1 /hpf (0 - 5)
[2024-05-04 05:00] VITALS: BP 125/48; PULSE 64; RESP 19; TEMP 98.1; O2SAT 94
[2024-05-04 08:30] VITALS: BP 148/68; PULSE 90; RESP 16; TEMP 98.2; O2SAT 93
--- NOTE | 2024-05-04 09:08 | DVHPN2 ---
Reviewed: Care Plan, H&P, Labs, Medications, Previous Orders, Radiology Changes from previous H/P or p: No Changes Eyes: No Pain, No Vision change, No Conjunctivae inflammation, No Eyelid inflammation, No Other, No Redness ENT: No Ear pain, No Ear discharge, No Nose pain, No Nose discharge, No Nose congestion, No Mouth pain, No Mouth swelling, No Throat pain, No Throat swelling, No Other Cardiovascular: No Chest Pain, No Palpitations, No Orthopnea, No Paroxysmal Noc. Dyspnea, No Edema, No Lt Headedness, No Other Respiratory: No Cough, No Dry, No Shortness of breath, No SOB with excertion, No Wheezing, No Hemoptysis, No Pleuritic Pain, No Sputum, No Other Gastrointestinal: No Nausea, No Vomiting; Abdominal Pain, Diarrhea; No Constipation, No Melena, No Hematochezia, No Other Genitourinary: No Dysuria; Frequency, Incontinence; No Hematuria, No Retention, No Other Musculoskeletal: No other, No neck pain, No shoulder pain, No arm pain, No back pain, No hand pain, No leg pain, No foot pain Skin: No Rash, No Lesions, No Jaundice, No Bruising, No Other Objective Vitals Vital Signs Date Time Temp Pulse Resp B/P (MAP) Pulse Ox O2 Delivery O2 Flow Rate FiO2 05/04/24 08:00 Room Air* 0 21 05/04/24 05:00 98.1 64 19 125/48 (73) 94 98.1 Intake/Output Intake and Output 05/04/24 07:00 Intake Total 1635 ml Output Total 0 ml Balance 1635 ml Intake Oral 850 ml IV Total 785 ml Stool Total 0 ml # Voids 13 Medications Current Medications Medications Dose Ordered Sig/Stacey Route Start Time Stop Time Status Last Admin Dose Admin Sodium Chloride 1,000 ml @ 75 mls/hr [id number] IV 04/30/24 21:45 05/04/24 05:32 75 MLS/HR Ceftriaxone Sodium/Dextrose 50 ml @ 50 mls/hr Q24H IV 05/01/24 21:00 05/03/24 21:00 50 MLS/HR Metronidazole 100 ml @ 100 mls/hr TID IV 04/30/24 22:00 05/04/24 05:32 100 MLS/HR Ondansetron HCl 4 mg Q8HPRN PRN IV 1/9/25 21:45 Lisinopril 20 mg DAILY PO 05/01/24 10:00 05/03/24 09:43 20 MG Famotidine 20 mg DAILY PO 05/01/24 10:00 05/03/24 09:43 20 MG Enoxaparin Sodium 40 mg DAILY SC 05/01/24 10:00 05/03/24 09:43 40 MG Amlodipine Besylate 10 mg DAILY PO 05/01/24 08:45 05/03/24 09:44 10 MG Acetaminophen/ Hydrocodone Bitart 1 tab Q6HPRN PRN PO 05/01/24 14:00 05/02/24 23:48 1 TAB Laboratory Results Laboratory Tests 05/03/24 10:00 Chemistry Test 05/03/24 10:00 Albumin 4.0 g/dL (3.2-4.8) Calcium Level 9.7 mg/dL (8.7-10.4) Total Protein 6.3 g/dL (5.7-8.2) LFT Test 05/03/24 10:00 Alanine Aminotransferase (ALT) 12 U/L (7-40) Alkaline Phosphatase 70 U/L (46-116) Aspartate Amino Transferase (AST) 15 U/L (13-40) Total Bilirubin 0.3 mg/dL (0.2-1.0) Urinalysis Test 05/04/24 01:50 Urine Color Light-yellow (Yellow) Urine Clarity Clear (Clear) Urine pH 7.0 (5.0-9.0) Urine Specific [place] 1.010 (1.001-1.035) Urine Protein Negative (Negative) Urine Ketones Negative (Negative) Urine Blood Negative /uL (Negative) Urine Nitrite Negative (Negative) Urine Bilirubin Negative (Negative) Urine Urobilinogen Normal mg/dL (Negative) Urine Leukocyte Esterase Negative /uL (Negative) Urine RBC 1 /hpf (0 - 4) Urine WBC <1 /hpf (0 - 5) Urine Squamous Epithelial Cells None seen /hpf (<5) Urine Bacteria None seen /hpf (None Seen) Urine Glucose Normal mg/dL (Normal) Labs and/or images reviewed: Labs reviewed by me, Image(s) reviewed by me Assessment/Plan Assessment/Plan Sepsis secondary to acute diverticulitis: Acute diverticulitis: Rocephin Flagyl History of recurrent diverticulitis Uncontrolled hypertension Acute dehydration: IV fluids Time spent 45 minutes Patient is full code Examined today with the help of management specialist patient feels better Awaiting transfer to [facility] bed [facility] Discussed with the patient's daughter Alix Plan discussed with: Patient My Orders Orders - JESSE GUPTA MD Procedure Category Date Status Time * Consumer Marketing Specialist CONS 05/04/24 Transmitted Consult Discharge DISCHARGE 05/04/24 Transmitted 09:06 Date of Service: May 04, 2024 Billing Provider: JESSE GUPTA MD Common Visit Codes: [id number] INP/OBS CARE(HIGH) JESSE GUPTA MD May 04, 2024 09:08
[2024-05-04 10:55] VITALS: BP 148/68; PULSE 90; RESP 16; TEMP 36.8; O2SAT 96
[2024-05-04 12:54] VITALS: BP 122/59; PULSE 72; RESP 18; TEMP 98.3; O2SAT 94
== END 2024-05-04 13:00 | DRG 392 ==
LOC: ER 13:38 → OVERFLOW 21:21 → CENTRAL 23:13
PROVIDERS: ADMIT Family Medicine; ATTEND Family Medicine
PROC: 05HF33Z Insertion of Infusion Device into Left Cephalic Vein, Percutaneous Approach (ICD-10-PCS; principal; 2024-05-02)
PROC: B54NZZA Ultrasonography of Left Upper Extremity Veins, Guidance (ICD-10-PCS; 2024-05-02)
DX: K57.32 Diverticulitis of large intestine without perforation or abscess without bleeding (principal); Z68.41 Body mass index [BMI] 40.0-44.9, adult; K44.9 Diaphragmatic hernia without obstruction or gangrene; I10 Essential (primary) hypertension; E86.0 Dehydration; E66.01 Morbid (severe) obesity due to excess calories; Z79.899 Other long term (current) drug therapy
CPT/HCPCS: 36415; 71045; 74176; 80048; 80053; 80307; 81001; 83036; 83880; 84443; 85025; 85610; 85730; 93306; 97110; 97116; 97163; 97530; 99291; G0378; J2405; J3490